=== PATIENT | female | born 1960 | race Caucasian/White ===

== ENCOUNTER 2018-07-24 12:48 | Emergency (ER) | payer OTHER | END 2018-07-24 14:01 | disposition home or self-care (01) | LOC: JERFT 12:48 ==

== ENCOUNTER 2019-11-27 05:05 | Day surgery (SDC) | payer OTHER ==
--- OUTSIDE RECORDS SUMMARY | 2019-11-19 09:54 | XMS ---
:1960 [facility] Team Providers Name Role Phone NAHUM PRINGLE Unavailable Unavailable PORTIA HERNANDEZ Unavailable Unavailable Re-disclosure Warning The records that you are about to access may contain information from federally- assisted alcohol or drug abuse programs. If such information is present, then the following federally mandated warning applies: This information has been disclosed to you from records protected by federal confidentiality rules (42 CFR part 2). The federal rules prohibit you from making any further disclosure of this information unless further disclosure is expressly permitted by the written consent of the person to whom it pertains or as otherwise permitted by 42 CFR part 2. A general authorization for the release of medical or other information is NOT sufficient for this purpose. The Federal rules restrict any use of the information to criminally investigate or prosecute any alcohol or drug abuse patient.The records that you are about to access may contain highly sensitive health information, the redisclosure of which is protected by Article 27-F of the [facility] Public Health law. If you continue you may haveaccess to information: Regarding HIV / AIDS; Provided by facilities licensed or operated by the [facility] Office of Mental Health; or Provided by the [facility] Office for People With Developmental Disabilities. If such information is present, then the following [facility] mandated warning applies: This information has been disclosed to you from confidential records which are protected by state law. State law prohibits you from making any further disclosure of this information without the specific written consent of the person to whom it pertains, or as otherwise permitted by law. Any unauthorized further disclosure in violation of state law may result in a fine or long-term sentence or both. A general authorization for the release of medical or other information is NOT sufficient authorization for further disclosure. Encounters Encounter Providers Location Date Indications Data Source(s ) Outpatient Attender: 05/01/2018 M25.519 [facility] saira HERNANDEZ, 03:35:00 PM Health Care ZVIAdmitter: [employer] Hu HERNANDEZerrer: NAHUM PRINGLE M25.519 Insurance Providers Payer name Policy type Policy ID Covered Covered alliance party's Policy P supriya / Coverage alliance party ID relationship to [employer] ormation type booker [employer] [id number] OT [id number] [place] [address] [id number] [phone] [id number] [facility] Problems, Conditions, and Diagnoses Code Display Name Description Problem Type Effective Data Sour ce(s) Dates M25.519 Pain in PAIN IN Diagnosis 05/01/2018 [place] unspecified UNSPECIFIED 03:35:00 PM [facility] shoulder SHOULDER [employer]
[2019-11-25 08:59] VITALS: BMI 29.9
--- OUTSIDE RECORDS SUMMARY | 2019-11-27 05:27 | XMS ---
:1960 [facility] Care Team Providers Name Role Phone [...] is protected by Article 27-F of the [facility] Public Health law. If you continue you may haveaccess to information: Regarding HIV / AIDS; Provided by facilities licensed or operated by the [facility] Office of Mental Health; or Provided by the [facility] Office for People With Developmental Disabilities. If such information is present, then the following [facility] mandated warning applies: This information has [...] law may result in a fine or halfway sentence or both. A general authorization for the release of medical or other information is NOT sufficient authorization for further disclosure. Encounters Encounter Providers Location Date Indications Data Source(s ) Outpatient Attender: 05/01/2018 M25.519 [facility] saira DAVID, 03:35:00 PM Health Care ZVIAdmitter: [employer] Hu HERNANDEZerrer: NAHUM PRINGLE M25.519 Insurance Providers Payer name Policy type Policy ID Covered Covered constitution party's Policy P supriya / Coverage constitution party ID relationship to [employer] type booker [employer] [id number] OT [id number] [facility] [id number] - [id number] [facility] Problems, Conditions, and Diagnoses Code Display Name Description Problem Type Effective Data Sour ce(s) Dates M25.519 Pain in PAIN IN Diagnosis 05/01/2018 [place] unspecified UNSPECIFIED 03:35:00 PM [facility] shoulder SHOULDER [employer] Results ID Date Data Source [id number] 11/23/2019 08:54:00 AM EDT [facility] Name Value Range Interpretation Description Data Sup porting Code Source(s) Document(s ) SARS [facility] coronavirus 2 RNA This lab was ordered by [facility] and reported by [facility]. Procedure
[2019-11-27 10:02] VITALS: TEMP 97.7
[2019-11-27 10:42] VITALS: BP 106/69; PULSE 57
--- NOTE | 2019-11-30 18:57 | PATH ---
Surgical Pathology Report Patient Name: RIDDHI SAWNAT Med. Rec. #: [id number] /Age/Gender: 1960 (Age: 59) / F Account: [id number] Location: [facility] Taken: 11/27/2019 Received: 11/27/2019 Reported: 11/30/2019 Physicians: Khalif Linares M.D. Specimen(s) Received A: PROXIMAL TRANSVERSE COLON POLYP B: SIGMOID POLYP Clinical History Family history of colon cancer, personal history of adenomas Postoperative diagnosis: Diverticulosis, polyps Final Diagnosis A. PROXIMAL TRANSVERSE COLON, BIOPSY: POLYPOID COLONIC MUCOSA WITH FOCAL ACTIVE COLITIS AND HEMORRHAGE. SEE COMMENT. B. SIGMOID COLON, POLYP, BIOPSY: POLYPOID COLONIC MUCOSA SMALL LYMPHOID AGGREGATE AND MILD SUPERFICIAL HYPERPLASTIC FEATURES. Comment: Part A, Findings are non-specific. Differential diagnoses include: bowel prep, acute self-limited colitis, and possibility of early inflammatory bowel disease. Suggest clinical/endoscopic correlation. Electronically Signed Andreia Boone M.D. Gross Description A. Received in formalin, labeled "biopsy proximal transverse colon" are 2 holm, irregular portions of soft tissue measuring 0.4 and 0.7 cm. in greatest dimension. The specimens are submitted in toto in one cassette. B. Received in formalin, labeled "biopsy sigmoid polyp" are 2 holm, irregular portions of soft tissue measuring 0.1 and 0.2 cm. in greatest dimension. The specimens are submitted in toto in one cassette. DL/11/27/2019 saudi/11/27/2019
== END 2019-11-27 10:59 | disposition home or self-care (01) ==
LOC: JASU-SURG 05:05
PROVIDERS: ATTEND Internal Medicine Gastroenterology
PROC: 0DBL8ZX Excision of Transverse Colon, Via Natural or Artificial Opening Endoscopic, Diagnostic (ICD-10-PCS; 2019-11-27)
PROC: 0DBN8ZX Excision of Sigmoid Colon, Via Natural or Artificial Opening Endoscopic, Diagnostic (ICD-10-PCS; principal; 2019-11-27 09:00)
DX: Z12.11 Encounter for screening for malignant neoplasm of colon (principal); Z86.010 Personal history of colon polyps; Z80.0 Family history of malignant neoplasm of digestive organs; D12.5 Benign neoplasm of sigmoid colon; D12.3 Benign neoplasm of transverse colon; K57.30 Diverticulosis of large intestine without perforation or abscess without bleeding; K64.8 Other hemorrhoids; K52.89 Other specified noninfective gastroenteritis and colitis
CPT/HCPCS: 88305-TC

== ENCOUNTER 2020-05-10 09:12 | Emergency (ER) | payer OTHER ==
[2020-05-10 09:25] VITALS: BP 155/100; PULSE 89; BMI 30.6
[2020-05-10 09:31] VITALS: TEMP 97.6
== END 2020-05-10 10:51 | disposition home or self-care (01) ==
LOC: FER 09:12
DX: L29.9 Pruritus, unspecified (principal)
CPT/HCPCS: 99282-25